=== PATIENT | male | born 1970 | race Caucasian/White ===

== ENCOUNTER 2019-04-08 12:03 | Observation (INO) | payer OTHER, SELFPAY ==
[2019-04-08] VITALS (11 sets, daily range): BP systolic 132–173; BP diastolic 55–90; PULSE 74–107; RESP 17–19; TEMP 36.6–37.2; O2SAT 95–99; BMI 33.8
--- NOTE | ~2019-04-08 | MR_ITS ---
EXAMINATION: MR brain/brain stem wo con EXAM DATE: 04/09/2019 08:26 INDICATION: Left facial weakness. TECHNIQUE: Magnetic resonance imaging (MRI) of the brain/brain stem obtained without contrast. Miguel A al T1, axial diffusion, gradient echo (T2*), T1, T2, FLAIR sequences obtained. There is no prior st udy for comparison. FINDINGS: There is round region within the left alveolar process of the maxilla bone, just of midline measuring 1.5 cm, probably something odontogenic in origin given location the poor dilatation, cavit ation of the remaining lower teeth. There are no areas of restricted diffusion to suggest acute infar ction. There is no acute hemorrhage seen on the T2*, a hemosiderin sensitive sequence. No intrapare nchymal brain mass. The ventricles are normal in size. There are no extra-axial collections. Flow v oids are seen in the cerebral arteries on the T2-weighted sequences consistent with their expected pa tency. The orbits are unremarkable. Soft tissue is unremarkable. IMPRESSION: 1. No acute intracranial findings. 2. Cystic region in the left upper incisor sockets portion of alveolar process. Reviewed, dictated and finalized at location B. EING TORCH OPERATOR IMPRESSION: 1. No acute intracranial findings. 2. Cystic region in the left upper incisor sockets portion of alveolar process .
--- NOTE | ~2019-04-08 | CT_ITS ---
EXAMINATION: CTA brain carotid DATE: 04/08/2019 13:29 INDICATION: Left facial weakness. Slurred speech. TECHNIQUE: Computed tomographic angiography (CTA) of the head was performed without and with 100 mL O mnipaque-350 intravenous contrast. CTA of the neck was performed with intravenous contrast. Automated exposure control and iterative reconstruction technique were employed. The dose-length product was 9 69.92 mGy-cm. Maximum intensity projection and volume rendered 3D-reconstructions were created by the technologist on a separate workstation. COMPARISON: None. FINDINGS: HEAD CTA: There is no intracranial hemorrhage, acute infarction, or abnormal intracranial mass lesion . The ventricles are normal in size. There is mild mucosal thickening in the ethmoid sinuses. The orb its are normal. The mastoid air cells are normal. The vertebral arteries are codominant. There is no significant stenosis of basilar artery or the posterior cerebral arteries. There is no significant st enosis of the intracranial internal carotid arteries or anterior or middle cerebral arteries. Left po sterior communicating artery is normal. A right posterior communicating artery is not identified. Ant erior communicating artery is normal. There is no aneurysm. NECK CTA: There is mild emphysema. There are no pathologically enlarged lymph nodes. There is no visi ble plaque in the proximal internal carotid arteries. There is 0% stenosis of the proximal right inte rnal carotid artery relative to normal distal artery lumen diameter (NASCET criteria). There is 0% st enosis of the proximal left internal carotid artery relative to normal distal artery lumen diameter. There is no significant stenosis of the vertebral arteries. There is mild cervical spondylosis. IMPRESSION: 1. Normal brain. No aneurysm or significant intracranial arterial stenosis. 2. Normal neck arteries. Reviewed, dictated and finalized at location A. ANICAL INSULATOR
--- NOTE | ~2019-04-08 | US_ITS ---
EXAMINATION: US venous doppler [facility] DATE: 04/09/2019 14:45 INDICATION: Left calf pain. TECHNIQUE: Grayscale ultrasound images without and with compression and Doppler ultrasound images of the left lower extremity veins were obtained. COMPARISON: None. FINDINGS: The visualized portions of left common femoral vein, profunda (deep) femoral vein, femoral vein, popl iteal vein, peroneal veins, posterior tibial veins, and greater saphenous vein outflow are patent. IMPRESSION: 1. No deep venous thrombosis. Reviewed, dictated and finalized at location A. IC ADDRESS SYSTEM MECHANIC
--- NOTE | 2019-04-08 12:12 | ED.NEUROSD ---
HPI - Neuro Symptoms/Deficit General Chief Complaint: Neuro Symptoms/Deficit Stated Complaint: neuro symptoms Time Seen by Provider: 04/08/19 12:10 Source: patient Mode of arrival: ambulatory Limitations: no limitations History of Present Illness HPI Narrative: The pt is a 48 y/o male who presents to the ED c/o neurological deficits onset this morning around 0430. Pt states that he began to experience tongue numbness down the middle. He also notes that the left side of his face has seemed to be drooping. He states that his left eye has also seemed to be drooping. Pt states that he was told that his speech was slurred as well. Pt notes that his symptoms are not improved or worsened by anything. He also notes that he has not experienced any symptoms similar to this in the past. Pt reports a GALAVIZ onset three days ago, but denies weakness, CP, and fever. Onset (ago): hour(s) (approximately 8) Location: speech (Slurred) and left face (Drooping, left eye drooping ) History of same: No Quality: numb (Down the middle of the tongue) Relieving factors: none Exacerbating factors: none Context: sudden onset Associated symptoms: headaches (Onset three days ago) Related Data Home Medications Medication Instructions Recorded Confirmed melatonin mg 04/08/19 ropinirole mg 04/08/19 varenicline [Chantix Starting ea 04/08/19 Month Box] Allergies Allergy/AdvReac Type Severity Reaction Status Date / Time No Known Allergies Allergy Mild Verified 04/08/19 12:20 Review of Systems Review of Systems: Narrative: Review of Systems Constitutional: Negative for fever. Cardiovascular: Negative for chest pain. Neurological: Positive for left-sided facial drooping, left eye drooping, numbness down the middle of the tongue, GALAVIZ onset three days ago, and slurred speech. Negative for weakness. All systems reviewed & are unremarkable except as noted in HPI and below PMFSH Past Medical History Medical History (Updated 04/08/19 @ 15:54 by Jenn Fermin MD) Healthy adult Surgical History Surgical History (Updated 04/08/19 @ 12:35 by Kenneth Ojeda) History of orthopedic surgery Surgery on the left hand Social History Social History (Updated 04/08/19 @ 12:35 by Kenneth Ojeda) Smoking status: Never smoker Gender identity (if verbalized by the patient): Male Exam Narrative: Exam Narrative: Constitutional: Appears well-developed. No distress. HENT: Head: Normocephalic. Nose: Nose normal. Mouth/Throat: Oropharynx is clear and moist. Eyes: Conjunctiva are normal. Neck: Normal range of motion. Neck supple. Cardiovascular: Normal rate and regular rhythm. Pulmonary/Chest: Effort normal and breath sounds normal. Abdominal: Soft. There is no tenderness. Musculoskeletal: Normal range of motion. No edema. Neurological: Alert and oriented to person, place, and time. Left facial droop, tongue deviated to the left, sensation decreased in the left face. Skin: Skin is warm. No pallor. Psychiatric: Normal mood and affect. Course Consultations Consultation #1: Discussed case with Shefali Reyes PA-C, will admit to the hospitalist. Date: 04/08/19 Time: 14:19 Vital Signs Vital signs: Vital Signs Temperature 37.2 C 04/08/19 12:13 Pulse Rate 107 H 04/08/19 12:13 Respiratory Rate 19 04/08/19 12:13 Blood Pressure 173/88 H 04/08/19 12:13 Pulse Oximetry 99 04/08/19 12:13 Temperature 37.2 C 04/08/19 12:13 Pulse Rate 75 04/08/19 15:21 Respiratory Rate 17 04/08/19 15:21 Blood Pressure 132/75 04/08/19 15:21 Pulse Oximetry 99 04/08/19 15:21 MDM - Neuro Symptoms/Deficit MDM Narrative Medical decision making narrative: Patient presents with left facial droop, tongue numbness, slurred speech. It's uncertain whether his symptoms are due to stroke or Joe's palsy. He is not a tPA candidate in case of stroke because LKW was greater than 4.5 hours. He is no candidate for thrombectomy because t
--- NOTE | 2019-04-08 12:13 | ECG_ITS ---
Measurements Intervals [place] Rate: 95 P: 44 IL: 158 QRS: -7 QRSD: 121 T: 30 QT: 342 QTc: 430 Interpretive Statements SINUS RHYTHM RSR' IN V1 OR V2, CONSIDER RIGHT VENTRICULAR HYPERTROPHY OR RIGHT VCD DELAYED PRECORDIAL R/S TRANSITION BASELINE ARTIFACT- II, III, AVR, AVF, V1-V3 BORDERLINE ECG Electronically Signed On 04-08-2019 13:01:37 PHOTOGRAPHER APPRENTICE by Albaro Herman D.O.
[2019-04-08 12:20] LABS: Glucose Point of Care 166 (65-105)
[2019-04-08 12:42] LABS: Basophils Absolute Auto 0.1 K/mm3 (0.0-0.1); Basophils Percent Auto 0.9 % (0.2-1.2); Eosinophils Absolute Auto 0.1 K/mm3 (0-0.3); Eosinophils Percent Auto 1.2 % (0-4.4); Hematocrit 40.3 % (42.0-52.0); Hemoglobin 13.6 g/dL (14.0-18.0); Immature Granulocyte Absolute 0.02 K/mm3 (0.00-0.031); Immature Granulocyte Percent A 0.3 % (0-0.5); Lymphocytes Absolute Auto 2.68 K/mm3 (0.9-3.2); Lymphocytes Percent Auto 34.8 % (18.3-44.2); Mean Corpuscular HGB Conc 33.7 g/dl (32-36); Mean Corpuscular Volume 88.8 fl (80-100); Mean Platelet Volume 10.7 fl (7.4-10.4); Monocytes Absolute Auto 0.4 K/mm3 (0.1-0.6); Monocytes Percent Auto 5.1 % (2.6-8.5); Neutrophils Absolute Auto 4.5 K/mm3 (1.3-6.7); Neutrophils Percent Auto 57.7 % (45.5-73.1); Platelet Count Result 239 k/mm3 (150-375); Red Blood Count 4.54 M/mm3 (4.6-6.20); Red Cell Distribution Width 12.1 % (11.5-14.5); White Blood Count 7.7 K/mm3 (4.5-10.0)
[2019-04-08 12:55] LABS: Blood Urea Nitrogen 12 mg/dL (9-20); Calcium 9.1 mg/dL (8.4-10.2); Carbon Dioxide 27 mmol/L (22-30); Chloride 101 mmol/L (98-107); Estimated Glomerular Filt Rate > 60; Glucose 150 mg/dL (75-110); Potassium 4.2 mmol/L (3.4-5.0); Sodium 139 mmol/L (137-145)
[2019-04-08 12:55] LABS: Partial Thromboplastin Time 28.6 SECONDS (22.3-36.8); Prothrombin Time 12.7 Seconds (11.1-14.7)
[2019-04-08] MEDS: ASPIRIN 81 MG CHEWABLE TABLET 324 MG PO (14:15)
[2019-04-08] MEDS: predniSONE 20 MG TABLET 60 MG PO (14:15)
--- NOTE | 2019-04-08 14:47 | PC.NURSE ---
called to lab and talked to page to add on a lipid panel and HGB A1C
[2019-04-08 14:57] LABS: Cholesterol 221 mg/dL (0-200); HDL Direct 48 mg/dL; Triglycerides 148 mg/dL (<150)
[2019-04-08 15:07] LABS: Hemoglobin A1C 7.9 % (<5.7)
[2019-04-08 15:08] LABS: LDL Cholesterol Direct 146 mg/dL
--- NOTE | 2019-04-08 15:30 | PC.NURSE ---
This patient, Delroy Desir, was admitted to 2 Medical Room 260-. Patient/family oriented to hospital policies and general routines including ID bracelet, bed and alarms, visiting hours, pain management, procedures, bathroom and other care routines, personal items, smoking policy, room service/diet, and visiting hours. Valuables list has been completed. Information on how to activate the Rapid Response Team has been discussed. Patient/Family are encouraged to report perceived risks to care and to ask questions if they do not understand what they are told or what they should do.
--- NOTE | 2019-04-08 21:04 | PM.IMHP ---
H&P: HPI History of Present Illness Chief complaint: Left facial droop. Narrative: Delroy Desir is a 48 year old male who presented to the emergency department earlier this afternoon via private vehicle for evaluation of left facial droop. He woke at 04:00 and left for work at 04:30 as per usual. While driving to work he noticed that the front half of the left side of his tongue seemed to be numb and food has just tasted differently since that time. He then noticed that the entire left side of his face felt differently when compared to the right side, and he was having a hard time opening and shutting his left eye. He also noticed a difference in the left side of his mouth when trying to spittle and notes it felt different when swallowing. Coworkers thought that perhaps his speech was a bit slurred as well. His vision earlier today was intermittently blurry in the left eye, but is now back to normal. He has never had similar symptoms. He denies shortness of breath. He has no other paresthesias or weakness except for as detailed above. He has a mild right postauricular headache which has been present for several days, and that is unchanged. No aural fullness or tinnitus. He denies vertigo and gait disturbances. It sounds as though he had a viral illness approximately 1 month ago, but that has improved. He has not had chest pain or feelings of irregular or racing heart. Review of Systems Review of Systems: Narrative: 12 systems were reviewed with pertinent positives and negatives as per HPI. No fever, chills, or sweats. He was recently told that he had early COPD, and quit smoking with Chantix about a month or 2 ago. He denies exertional chest pain and shortness of breath. No history of high blood pressure, high cholesterol, or diabetes to his knowledge. Mild blurry vision with the left eye only today as detailed above. No polyuria or polydipsia. No personal or family history of thyroid disease or myasthenia gravis. Except as documented, all other systems were reviewed and are negative. [facility] Past Medical History Medical History (Updated 04/08/19 @ 22:46 by Shefali Reyes PA-C) COPD (chronic obstructive pulmonary disease) Patient quit smoking recently after this diagnosis. GERD (gastroesophageal reflux disease) Restless leg syndrome Surgical History Surgical History (Updated 04/08/19 @ 22:38 by Shefali Reyes PA-C) History of orthopedic surgery Left hand surgery. Status post arthroscopy of left knee Status post right inguinal herniorrhaphy Family History Family History (Updated 04/08/19 @ 22:39 by Shefali Reyes PA-C) Mother Osteoarthritis Son Spina bifida Social History Social History (Updated 04/08/19 @ 22:40 by Shefali Reyes PA-C) Social History: He designates his mother Shelia and his girlfriend Bhumi as his surrogate decision makers. He wishes to be a full code. Smoking packs per day: 1.5 Smoking cigarettes per day: 30.0 Years smoked: 32 Smoking pack-years: 48.00 Smoking status: Former smoker Tobacco type: cigarettes Smokeless tobacco user: chewing tobacco Second hand tobacco smoke exposure: Yes Smoking end date: 02/25/19 Additional smoking assessment comments: Takes Chantix Alcohol intake: current Drinks per week: 1 Substance use: former Substance use type: marijuana Last use: Additional living arrangements comments: Lives in [place] with his girlfriend, Ava. Gender identity (if verbalized by the patient): Male Spiritual care concerns: No Agree to blood products: Yes Meds Home Medications and Allergies Home Medications Medication Instructions Recorded Confirmed Type melatonin 6 mg HS 04/08/19 04/08/19 History ropinirole 0.5 mg HS 04/08/19 04/08/19 History varenicline [Chantix] 1 mg PO BID 04/08/19 04/08/19 History Allergies Allergy/AdvReac Type Severity Reaction Status Date / Time No Known Allergies A
[2019-04-08] MEDS: MELATONIN 3 MG TABLET 6 MG PO (22:59)
[2019-04-09] VITALS (11 sets, daily range): BP systolic 114–130; BP diastolic 59–87; PULSE 75–95; RESP 14–18; TEMP 36.1–36.9; O2SAT 96–100
--- NOTE | 2019-04-09 | ECHO_ITS ---
Patient Info Name: Delroy Desir Age: 48 years : 1970 Gender: Male Ht: 68 in Wt: 222 lbs BSA: 2.23 m2 HR: 77 bpm BP: 124 / 59 mmHg Technical Quality: Good Exam Date: 04/09/2019 11:08 AM Exam Location: [facility] Patient Status: Inpatient Admit Date: 04/08/2019 Staff Ordering Physician: Melani Cam PA-C Bag Loader: Kenneth Quiñonez RDCS, RT Attending Provider: Melani Cam PA-C Exam Type: CA echo dop bubble study w con Study Info Indications Z86.73 - Personal history of transient ischemic attack (TIA), and cerebral infarction without residual deficits Complete two-dimensional, color flow and Doppler transthoracic echocardiogram is performed with contrast to opacify the left ventricle and to improve the deliniation of the left ventricle endocardial borders. Complete two-dimensional, color flow and Doppler transthoracic echocardiogram is performed with agitated saline. Summary 1. Left ventricular chamber size, wall thickness, systolic and diastolic function are normal with no regional wall motion abnormalities with an estimated ejection fraction of 65-70%. 2. Patent foramen ovale visualized by Doppler and agitated saline imaging. No aofcv-gw-iyod shunt during normal respiration but a moderate azlbq-gr-xvhm shunt was demonstrated with Valsalva maneuver. 3. No significant valve disease. 4. Normal sinus rhythm. Left Ventricle Left ventricular chamber size, wall thickness, systolic and diastolic function are normal with no regional wall motion abnormalities with an estimated ejection fraction of 65-70%. Left ventricular chamber dimension is normal. Left ventricular systolic function is normal, estimated at 60-65%. There is no increased left ventricular wall thickness. Left ventricular septal wall motion is normal. The left ventricular diastolic function is normal. Right Ventricle Right ventricular chamber dimension is normal. Right ventricular systolic function is normal. Left Atria Left atrial chamber dimension is normal. Right Atria Right atrial chamber dimension is normal. Atrial Septum Patent foramen ovale visualized by Doppler and agitated saline imaging. No atmdq-yz-ndmd shunt during normal respiration but a moderate zfnhh-ky-pejk shunt was demonstrated with Valsalva maneuver. Aortic Valve The aortic valve is trileaflet. There is no aortic valve sclerosis. There is no aortic valve stenosis. There is no aortic valve regurgitation. Pulmonic Valve The pulmonic valve is normal. There is no pulmonic valve stenosis. There is no pulmonic regurgitation. Mitral Valve The mitral valve has normal leaflets. There is no mitral valve stenosis. There is no mitral valve regurgitation. Tricuspid Valve The tricuspid valve leaflets are normal. There is no significant tricuspid valve stenosis. There is trace tricuspid valve regurgitation. No pulmonary hypertension, estimated pulmonary arterial systolic pressure is Empty. Pericardium/Pleural The pericardium appears normal. There is no pericardial effusion. Inferior Vena Cava Normal inferior vena cava with >50% collapse upon inspiration consistent with Empty right atrial pressure, Empty. Aorta The aortic root size at the sinus of Valsalva is normal. The prox ascending aorta size is normal. Left Ventricular Outflow Tract Name Value Normal
[2019-04-09 05:52] LABS: Blood Urea Nitrogen 15 mg/dL (9-20); Calcium 8.7 mg/dL (8.4-10.2); Carbon Dioxide 25 mmol/L (22-30); Chloride 101 mmol/L (98-107); Cholesterol 207 mg/dL (0-200); Estimated CRCL calculation 92 ml/min; Estimated Glomerular Filt Rate > 60; Glucose 275 mg/dL (75-110); HDL Direct 47 mg/dL; Potassium 4.4 mmol/L (3.4-5.0); Sodium 136 mmol/L (137-145); Triglycerides 99 mg/dL (<150)
[2019-04-09 06:02] LABS: LDL Cholesterol Direct 150 mg/dL
[2019-04-09 06:57] LABS: Folic Acid 8.2 ng/mL (2.76->20)
[2019-04-09] MEDS: ACETAMINOPHEN 325 MG TABLET 650 MG PO ×2 (07:35→13:46)
[2019-04-09] MEDS: ASPIRIN 81 MG ENTERIC TABLET PO (07:37)
[2019-04-09] MEDS: VARENICLINE 1 MG TABLET PO ×2 (07:38→17:33)
--- NOTE | 2019-04-09 07:50 | PC.NURSE ---
To Radiology per [wheel chair with IV saline locked. ]
--- NOTE | 2019-04-09 08:20 | PC.NURSE ---
Return from Radiology per [ wheel chair with IV saline locked.]
[2019-04-09] MEDS: PERFLUTREN LIPID MICROSPHERES 1.5 ML VIAL DILUTED TO 10 ML TOTAL VOLUME IV PUSH (11:42)
--- NOTE | 2019-04-09 14:46 | PC.NURSE ---
Addendum entered by Bisi Clark RN 04/09/19 14:48: Patient off floor at 1430. Original Note: To Radiology per wheelchair with IV saline locked.
--- NOTE | 2019-04-09 14:48 | PC.NURSE ---
Returned from radiology via wheelchair with IV saline locked.
[2019-04-09] MEDS: predniSONE 20 MG TABLET 60 MG PO (15:30)
--- NOTE | 2019-04-09 20:21 | PM.IMPN ---
Progress Note: A&P Assessment and Plan (1) Neurological symptoms: Code(s): R29.90 - Unspecified symptoms and signs involving the nervous system Status: Acute Assessment and Plan: Today patient has obvious motor deficits to CNVII on the right. He is having difficulty closing R eyelid, difficulty raising R eyebrow, R side of mouth with minimal movement when he talks. 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 MRI brain is normal. He describes a headache on the right side. Check ESR/CRP in AM to rule out arteritis. Continue oral steroids. Waiting on echocardiogram report. Hopeful for discharge in AM. (2) New onset type 2 diabetes mellitus: Code(s): E11.9 - Type 2 diabetes mellitus without complications Status: Acute Assessment and Plan: Hemoglobin A1c was 7.9%, diagnostic of diabetes. This was discussed with patient and he wishes to try lifestyle changes and follow up with his primary care physician on discharge. (3) Elevated blood pressure reading: Code(s): R03.0 - Elevated blood-pressure reading, without diagnosis of hypertension Status: Acute Assessment and Plan: Elevated on arrival, now improved. Patient reports no previous diagnosis of hypertension. Monitor BP. Follow up with PCP. (4) DVT prophylaxis: Code(s): Z29.9 - Encounter for prophylactic measures, unspecified Status: Acute Assessment and Plan: SCDs Subjective Date/time seen: 04/09/19 1300 Mr. Desir is a 48yo M admitted with facial nerve palsy as his symptoms were initially concerning for CVA. Today on exam, he has difficulty blinking R eye and moving R side of mouth. He is concerned for his slurred speech and has some tongue numbness. He denies arm or leg weakness or paresthesias. He denies any chest pain, shortness of breath, or difficulty swallowing. He is tolerating PO intake without nausea or vomiting. He describes some left lower leg pain that began around 1 week ago, but also mentions that he has had arthroscopic procedure to L knee a couple years ago and sometimes has pain in this leg. Denies history of VTE or arrhythmias. Reports multiple missing teeth but no oral pain. He describes a headache that he has had for 2 days. Review of Systems Review of Systems: Narrative: Twelve systems were reviewed with pertinent positives and negatives as per HPI. Exam Narrative: Exam Narrative: General: Male sitting up in bed in no acute distress, visiting with family at beside. HEENT: Normocephalic, atraumatic, EOMI, PERRL. Obvious difficulty closing R eye. Poor dentition and multiple missing teeth, but no evidence of acute infection. Cardiovascular: Rate and rhythm are regular. No notable murmur, rub, or gallop. Respiratory: Lungs clear to auscultation all romano. Non-labored breathing. Abdomen: Soft, non-tender, non-distended, bowel sounds present. Extremities: Peripheral pulses intact. No edema. Neuro: Notable deficits of CNVII motor function on right. Difficulty closing R eyelid and R mouth involvement noted. Right nasolabial fold less prominent than left. Mouth pulls to unaffected side. Objective Data Vital Signs Vital Signs: Last Vital Signs Temp 98.4 F 04/09/19 14:00 Pulse 88 04/09/19 16:00 Resp 16 04/09/19 14:00 BP 114/65 04/09/19 14:00 Pulse Ox 100 04/09/19 14:00 Intake/Output Intake/Output: Intake & Output 04/06/19 04/07/19 04/08/19 04/09/19 23:59 23:59 23:59 23:59 Intake Total 340 1860 Output Total 1600 Balance 340 260 Meds/Results Medications: Active Medications Generic Name Dose Route Start Last Admin Trade Name Freq PRN Reason Stop Dose Admin Acetaminophen 650 mg 04/09/19 07:31 04/09/19 13:46 Tylenol Tablet PO 650 mg Q4H PRN Administration Pain or Fever Aspirin 81 mg 04/09/19 09:00 04/09/19 07:37 Aspirin Ec PO 81 mg
[2019-04-09] MEDS: MELATONIN 3 MG TABLET 6 MG PO (21:39)
[2019-04-10] VITALS: PULSE 74
[2019-04-10 03:01] VITALS: BP 109/57; PULSE 68; RESP 16; TEMP 36.1; O2SAT 97
[2019-04-10 04:00] VITALS: PULSE 84
[2019-04-10 06:00] VITALS: BP 124/71; PULSE 62; RESP 14; TEMP 36; O2SAT 95
[2019-04-10 06:30] LABS: CRP < 0.5 mg/dL (<1.0)
[2019-04-10 07:06] LABS: Erythrocyte Sedimentation Rate 17 mm/hr (0-20)
[2019-04-10 08:00] VITALS: PULSE 78
[2019-04-10] MEDS: VARENICLINE 1 MG TABLET PO (08:14)
[2019-04-10] MEDS: predniSONE 20 MG TABLET 60 MG PO (08:14)
[2019-04-10] MEDS: ASPIRIN 81 MG ENTERIC TABLET PO (08:14)
[2019-04-10] MEDS: ACETAMINOPHEN 325 MG TABLET 650 MG PO (08:18)
[2019-04-10 10:00] VITALS: BP 130/79; PULSE 83; RESP 16; TEMP 36.6; O2SAT 97
--- NOTE | 2019-04-10 17:58 | PM.DS ---
DS: Diagnosis Admitting Diagnosis Admitting Diagnosis: Unspecified symptoms and signs involving the nervous system Discharge Diagnosis (1) Neurological symptoms: Code(s): R29.90 - Unspecified symptoms and signs involving the nervous system Status: Acute Assessment and Plan: Date of Service 04/09/19: Mr Desir is a 48yo M who presented to the ED for evaluation of facial droop. On exam, he is noted to have paralysis to R side of face with difficulty closing his R eye and moving the R corner of his mouth when he speaks. He also complains of tongue numbness. He has never had these symptoms before. MRI of brain is normal without evidence of stroke. His symptoms were felt to be a result of Joe's palsy and he was started on prednisone. Echocardiogram performed for CVA/TIA work up showed a patent foramen ovale - no shunting with saline agitation but [id number] shunting was noted on valsalva. He was agreeable to following up with PCP for possible cardiology referral regarding this. BP elevated on arrival but stable at discharge, he denies a history of HTN. He complained of left lower leg pain and doppler is negative for left DVT. Patient also noted to have Hgb A1c 7.9. Fasting blood glucose levels on AM lab draw was 275. He wished to try lifestyle modifications with diet and exercise and was instructed to promptly follow up with PCP. Prednisone will also elevate his blood sugars. He was hemodynamically stable for discharge 04/09/19 with a 7-day course of prednisone with plans to follow up with PCP as soon as possible, I believe he made an appointment for the first week of April. He was instructed to remove his contacts and wear his glasses, purchase artificial tears and eye patch over the counter if needed to protect R cornea, off work until cleared by PCP. Today patient has obvious motor deficits to CNVII on the right. He is having difficulty closing R eyelid, difficulty raising R eyebrow, R side of mouth with minimal movement when he talks. 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 MRI brain is normal. He describes a headache on the right side. ESR/CRP normal, making temporal arteritis less likely. Continue oral steroids. (2) New onset type 2 diabetes mellitus: Code(s): E11.9 - Type 2 diabetes mellitus without complications Status: Acute Assessment and Plan: Hemoglobin A1c was 7.9%. This was discussed with patient and he wishes to try lifestyle changes and follow up with his primary care physician on discharge. (3) Elevated blood pressure reading: Code(s): R03.0 - Elevated blood-pressure reading, without diagnosis of hypertension Status: Acute Assessment and Plan: Elevated on arrival, now improved. Patient reports no previous diagnosis of hypertension. Monitor BP. Follow up with PCP. (4) DVT prophylaxis: Code(s): Z29.9 - Encounter for prophylactic measures, unspecified Status: Acute Assessment and Plan: SCDs DS: Summary Time Spent with Patient Time attestation: Total time spent providing and/or coordinating discharge services: 35 minutes Exam Narrative: Exam Narrative: General: Male sitting up in bed in no acute distress, visiting with family at beside. HEENT: Normocephalic, atraumatic, EOMI, PERRL. Obvious difficulty closing R eye. Poor dentition and multiple missing teeth, but no evidence of acute infection. Cardiovascular: Rate and rhythm are regular. No notable murmur, rub, or gallop. Respiratory: Lungs clear to auscultation all romano. Non-labored breathing. Abdomen: Soft, non-tender, non-distended, bowel sounds present. Extremities: Peripheral pulses intact. No edema. Neuro: Notable deficits of CNVII motor function on right. Difficulty closing R eyelid and R mouth involvement noted. Right nasolabial fold less prominent than left. Mouth pulls to unaffected side
== END 2019-04-10 11:15 | disposition home or self-care (01) ==
LOC: ANHED 14:28 → ANH2MED 15:20
PROVIDERS: Physician Assistant; Admitting Provider Family Medicine; Emergency Provider Emergency Medicine; Visit Provider Internal Medicine
DX: R29.818 Other symptoms and signs involving the nervous system (principal); R03.0 Elevated blood-pressure reading, without diagnosis of hypertension; E11.9 Type 2 diabetes mellitus without complications; M79.662 Pain in left lower leg; J44.9 Chronic obstructive pulmonary disease, unspecified; Z87.891 Personal history of nicotine dependence; K21.9 Gastro-esophageal reflux disease without esophagitis
CPT/HCPCS: 36415; 70496; 70498; 70551; 80048; 80061; 82607; 82746; 83036; 84443; 85025; 85610; 85652; 85730; 86140; 93005; 93971; 96374; 96375; 99285; A9270; C8929; G0378; J7512; Q9957; Q9967